=== PATIENT | male | born 1990 | race Caucasian/White ===

== ENCOUNTER 2024-05-29 06:45 | Outpatient (CLI) | payer OTHER, SELFPAY ==
--- NOTE | ~2024-05-29 | MR_ITS ---
EXAMINATION: MR pelvis wo/w con DATE: 05/29/2024 07:46 INDICATION: Rectal fistula. TECHNIQUE: Magnetic resonance imaging (MRI) of the pelvis was performed without and with 20 mL MultiH ance intravenous contrast. COMPARISON: None. FINDINGS: There are no dilated loops of bowel. There is soft tissue thickening and enhancement to the left of t he anus and posterior to the anus with 5 mm fluid collection posterior to the anus. There are no path ologically enlarged lymph nodes. There is no free intraperitoneal fluid. IMPRESSION: 1. Soft tissue thickening and enhancement to the left of the anus and posterior to the anus with 5 mm fluid collection posterior to the anus, consistent with inflammation and abscess. Reviewed, dictated and finalized at location A. [employer]
== END 2024-05-29 06:46 | disposition home or self-care (01) ==
PROVIDERS: Visit Provider Nurse Practitioner Family
DX: R93.89 Abnormal findings on diagnostic imaging of other specified body structures (principal); K60.40 Rectal fistula, unspecified; K50.10 Crohn's disease of large intestine without complications
CPT/HCPCS: 72197; A9577